=== PATIENT | male | born 1950 | race Two or more races ===

== ENCOUNTER 2016-04-28 11:53 | Emergency (ER) | payer OTHER ==
[~2016-04-28] VITALS: Ht 180.3 cm; Wt 99.3 kg
[~2016-04-28 11:53] MED LIST: ASPI-991 PO; LISI10TA5 PO; METO25TA PO
[2016-04-28 12:47] VITALS: BP 151/88
== END 2016-04-28 12:47 | disposition home or self-care (01) ==
LOC: ER 11:57
DX: J11.1 Influenza due to unidentified influenza virus with other respiratory manifestations (principal); F17.210 Nicotine dependence, cigarettes, uncomplicated; I10 Essential (primary) hypertension
CPT/HCPCS: 99283; A4606; Z7610

== ENCOUNTER 2016-10-04 12:35 | Emergency (ER) | payer MEDICARE, OTHER ==
[~2016-10-04] VITALS: Ht 182.9 cm; Wt 90.7 kg
[~2016-10-04 12:35] MED LIST changes: +METO-302 PO; -METO25TA PO
--- NOTE | 2016-10-04 12:35 | NUR ---
PT REC'D TO ER VIA EMS C/O GARCÍA, STOP DRINKING AFTER 2 DAYS . SMOKER WAS WATCHING TV AND DIDNT FEEL GOOD . IV STARTED 18 G RT WRIST LABS SENT TO LAB . IV NS BOLUS GIVEN AND ATIVAN 2MG IVP AND ZOFRAN 4 MG IVP O2 N/C 2 L 100
[2016-10-04] MEDS ORDERED: ONDANSETRON HCL/PF 4 MG/2 ML VIAL ONE (12:38)
[2016-10-04] MEDS ORDERED: IV NS 0.9% 1,000 ML ONE (12:38)
[2016-10-04] MEDS ORDERED: LORAZEPAM INJ 2 MG/ML VIAL ONE ×2 (12:38→12:59)
[2016-10-04] MEDS ORDERED: IV SET PRIMARY 1 EA INFUS.SET MC ONE (12:38)
[2016-10-04 12:47] LABS: BASOPHILS % (AUTO) 0.4 % (0.0-2.0); EOSINOPHILS # (AUTO) 0.1 /CMM (0.0-0.7); EOSINOPHILS % (AUTO) 0.8 % (0.0-6.0); HEMATOCRIT 40 % (39-51); HEMOGLOBIN 13.8 g/dL (13.5-17.5); LYMPHOCYTES # (AUTO) 1.5 /CMM (0.8-4.8); LYMPHOCYTES % (AUTO) 17.3 % (20.0-44.0); MEAN CORPUSCULAR HEMOGLOBIN 32 PG (26.0-33.0); MEAN CORPUSCULAR HGB CONC 35 g/dl (31.0-36.0); MEAN CORPUSCULAR VOLUME 92 fL (80-96); MONOCYTES # (AUTO) 0.6 /CMM (0.1-1.30); MONOCYTES % (AUTO) 6.9 % (2.0-12.0); NEUTROPHILS # (AUTO) 6.7 /CMM (1.8-8.9); NEUTROPHILS % (AUTO) 74.6 % (43.0-81.0); PLATELET COUNT (AUTO) 120 /CMM (150-450); RDW COEFFICIENT OF VARIATION 14.2 (11.5-15.0); RED BLOOD CELL COUNT(AUTO) 4.35 MIL/uL (4.5-6.0); WHITE BLOOD COUNT (AUTO) 8.9 K/uL (4.3-11.0)
[2016-10-04 12:57] LABS: CARBON DIOXIDE 27 mmol/L (21-32); CHLORIDE 102 mmol/L (98-107); CREATININE 0.7 mg/dL (0.6-1.3); GLUCOSE 109 mg/dL (74-106); POTASSIUM 3.7 mmol/L (3.5-5.1); SODIUM SERUM 140 mmol/L (136-145); UREA NITROGEN, BLOOD 13 mg/dL (7-18)
[2016-10-04] MEDS ORDERED: THIAMINE HCL 100 MG TABLET PO ONE (13:00)
[2016-10-04] MEDS ORDERED: ONDANSETRON HCL/PF 4 MG/2 ML VIAL IVP ONE (13:00)
[2016-10-04] MEDS ORDERED: IV NS 0.9% 1,000 ML BAG IV ONE (13:00)
[2016-10-04] MEDS ORDERED: LORAZEPAM INJ 2 MG/ML VIAL IV ONE ×2 (13:00)
[2016-10-04 13:03] LABS: ALANINE AMINOTRANSFERASE 67 U/L (12-78); ALBUMIN 3.5 g/dL (3.4-5.0); ALCOHOL, BLOOD < 3 mg/dL (0-0); ALKALINE PHOSPHATASE 105 U/L (46-116); ASPARTATE AMINOTRANSFERASE 124 U/L (15-37); BILIRUBIN,DIRECT 0.3 mg/dL (0.0-0.2); BILIRUBIN,TOTAL 1.1 mg/dL (0.2-1.0); TOTAL PROTEIN, SERUM 7.6 g/dL (6.4-8.2)
[2016-10-04] MEDS ORDERED: THIAMINE HCL 100 MG TABLET ONE (13:05)
--- NOTE | 2016-10-04 14:06 | NUR ---
PT RESTING QUIETLEY AND ATE LUNCH FEELS BETTER
[2016-10-04 14:39] VITALS: BP 153/72
--- NOTE | 2016-10-04 14:40 | NUR ---
PT. VERBALIZED UNDERSTANDING OF AFTERCARE INSTRUCTIONS.IV removed. Catheter intact and site benign. Pressure and 4x4 applied to site. No bleeding noted.Patient discharged to home in stable condition. Written and verbal after care instructions given. Patient verbalizes understanding of instruction.
== END 2016-10-04 14:41 | disposition home or self-care (01) ==
LOC: ER 12:36
DX: F10.239 Alcohol dependence with withdrawal, unspecified (principal); I10 Essential (primary) hypertension; F17.200 Nicotine dependence, unspecified, uncomplicated; Z79.82 Long term (current) use of aspirin
CPT/HCPCS: 80048-TC; 80076-TC; 85025-TC; A4606; G0480; J2060; J2405; J7030; Z7610